=== PATIENT | female | born 1985 | race Caucasian/White ===

== ENCOUNTER 2021-03-06 10:09 | Emergency (ER) | payer BC ==
[~2021-03-06] VITALS: Ht 162.6 cm; Wt 56.7 kg
--- NOTE | 2021-03-06 10:45 | NUR ---
ER DR. WEI EXAMINING PT IN LOBBY
[2021-03-06 11:28] VITALS: BP_SYST 109
[2021-03-06 11:42] LABS: BASOPHILS % (AUTO) 0.1 % (0.0-2.0); CALCIUM 8.9 mg/dL (8.4-11.0); CREATININE 0.82 mg/dL (0.55-1.30); EOSINOPHILS # (AUTO) 0.1 K/uL (0.0-0.4); EOSINOPHILS % (AUTO) 1.6 % (0.0-4.0); HEMATOCRIT 37.7 % (36-48); HEMOGLOBIN 12.7 g/dL (12.0-16.0); LYMPHOCYTES # (AUTO) 0.7 K/uL (1.0-5.5); LYMPHOCYTES % (AUTO) 8.3 % (20.5-51.5); MEAN CORPUSCULAR HEMOGLOBIN 31 pg (27-31); MEAN CORPUSCULAR HGB CONC 34 % (32-36); MEAN CORPUSCULAR VOLUME 92 fL (79.0-98.0); MONOCYTES # (AUTO) 0.5 K/uL (0.0-1.0); MONOCYTES % (AUTO) 5.2 % (1.7-9.3); NEUTROPHILS # (AUTO) 7.6 K/uL (1.8-7.7); NEUTROPHILS % (AUTO) 84.8 % (40.0-70.0); PLATELET COUNT (AUTO) 235 K/uL (130-430); POTASSIUM 3.6 mmol/L (3.5-5.1); RED BLOOD CELL COUNT(AUTO) 4.09 MIL/uL (4.2-6.2); RED CELL DISTRIBUTION WIDTH 14.5 % (9.0-15.0); WHITE BLOOD COUNT (AUTO) 8.9 K/uL (4.8-10.8)
[2021-03-06 11:50] LABS: ALBUMIN 3.5 g/dL (3.4-4.8); C-REACTIVE PROTEIN QUANT 1.9 mg/dL (0-0.5); TOTAL BILIRUBIN 0.9 mg/dL (0.0-1.0)
[2021-03-06 11:53] LABS: PROTHROMBIN TIME 10.4 SECS (9.5-12.5)
--- NOTE | 2021-03-06 12:00 | NUR ---
Placed in room 7 . Placed on color television console monitor, blood pressure machine and pulse oximeter. To gown for exam. Side rails up.
--- NOTE | 2021-03-06 12:05 | NUR ---
PT CAME IN FROM HOME C/O PAIN IN VAGINAL AREA S/P 1 MONTH AGO. STATES SHE TORE DURING CHILD AND HAS BEEN CONCERNED THE AREA IS INFECTED. WOKE UP LAST NIGHT WITH SWEATING AND HOT AND COLD. V/S STABLE UPON ARRIVAL, AFEBRILE. AAOX4, V/S STABLE
[2021-03-06] MEDS ORDERED: HYDR-3917 PO (12:22)
[2021-03-06] MEDS ORDERED: IBUP-1969 PO (12:22)
[2021-03-06 12:52] VITALS: BP_SYST 122
--- NOTE | 2021-03-06 12:52 | NUR ---
Patient given written and verbal discharge instructions and verbalizes understanding. ER MD discussed with patient the results and treatment provided. Patient in stable condition. ID arm band removed. NO Rx given. Patient educated on pain management and to follow up with PMD. Pain Scale 0/10. Opportunity for questions provided and answered. Medication side effect fact sheet provided.
== END 2021-03-06 12:52 | disposition home or self-care (01) ==
LOC: SED 10:09
DX: R10.84 Generalized abdominal pain (principal); M54.5 Low back pain; Z79.899 Other long term (current) drug therapy
CPT/HCPCS: 36415; 76376; 80053; 81002; 81025; 82150; 83690; 84703; 85025; 85610-TC; 85730-TC; 86140; 99284